=== PATIENT | male | born 1970 | race Hispanic/Latino ===

== ENCOUNTER → 2018-11-08 | Outpatient (CLI) | payer OTHER | END | disposition home or self-care (01) | LOC: RAH 10:29 | PROVIDERS: ATTEND Internal Medicine | DX: M48.02 Spinal stenosis, cervical region (principal); M47.812 Spondylosis without myelopathy or radiculopathy, cervical region; R20.2 Paresthesia of skin | CPT/HCPCS: 72040; 73030; 73080 ==